=== PATIENT | female | born 1970 | race Caucasian/White ===

== ENCOUNTER 2016-08-15 05:35 | Inpatient (IN) | payer OTHER ==
[2016-08-15] MEDS ORDERED: CEFAZOLIN 1 GM VIAL ONE (06:02)
[2016-08-15 06:26] LABS: BLOOD UREA NITROGEN 14 MG/DL (7-17); CALCIUM 9.8 MG/DL (8.4-10.2); CALCULATED OSMOLALITY 270 MOs/Kg (270-290); CHLORIDE 101 mEq/L (98-107); GLUCOSE 97 MG/DL (70-99); SODIUM LEVEL 140 mEq/L (137-146)
[2016-08-15] MEDS ORDERED: PROMETHAZINE 25 MG/ML VIAL IV PRN ×2 (06:48)
[2016-08-15] MEDS ORDERED: HYDROmorphone 1 MG INJECTION IV PRN ×2 (06:48→06:55)
[2016-08-15] MEDS ORDERED: ONDANSETRON HCL 4 MG ODT TAB PO PRN (06:48)
[2016-08-15] MEDS ORDERED: ONDANSETRON HCL 4 MG/2 ML VIAL IV PRN ×2 (06:48→06:55)
[2016-08-15] MEDS ORDERED: LABETALOL 20 MG/4 ML SYRINGE IV PRN (06:48)
[2016-08-15] MEDS ORDERED: hydrALAZINE 20 MG/ML VIAL IV PRN (06:48)
[2016-08-15] MEDS ORDERED: MEPERIDINE 25 MG/ML TUBEX IV PRN (06:48)
[2016-08-15] MEDS ORDERED: FENTANYL 100 MCG/2 ML VIAL IV PRN (06:48)
--- NOTE | 2016-08-15 06:49 | SC.ANESPOS ---
[id number], Hemodynamically Stable, Pain Control Adequate Phase I & II Recovery Complete: Yes Apparent Anesthesia Complication: No : N - Vital Signs Blood Pressure: 155/82 Pulse: 65 Resp Rate: 18 O2 Sat: 98 Temp: 97.9 F
[2016-08-15] MEDS ORDERED: BUPIVACAINE 0.5% 30 ML VIAL ONE (06:51)
[2016-08-15] MEDS ORDERED: hydrALAZINE 10 MG TAB PO PRN (06:54)
[2016-08-15] MEDS ORDERED: MAGNESIUM HYDROXIDE 30 ML BOTTLE PO PRN (06:55)
[2016-08-15] MEDS ORDERED: Aluminum;Magnesium;Simethicone 30 ML UDC PO PRN (06:55)
[2016-08-15] MEDS ORDERED: SODIUM CHLORIDE 0.9% 3 ML FLUSH FLUSH PRN (06:55)
[2016-08-15] MEDS ORDERED: DIPHENHYDRAMINE 25 MG CAP PO PRN (06:55)
[2016-08-15] MEDS ORDERED: DIPHENHYDRAMINE 50 MG/ML VIAL IV PRN (06:55)
[2016-08-15] MEDS ORDERED: ZOLPIDEM TARTRATE 5 MG TAB PO PRN (06:55)
--- NOTE | 2016-08-15 06:59 | HIMOPRPT ---
PREOPERATIVE DIAGNOSIS: Right knee end-stage degenerative joint disease. POSTOPERATIVE DIAGNOSIS: Right knee end-stage degenerative joint disease. PROCEDURE: Right total knee arthroplasty. FINDINGS: End-stage medial and patellofemoral compartment arthrosis. SPECIMENS REMOVED: Portions of the distal femur, proximal tibia, and posterior patella. EBL: 100 mL. ANESTHESIA: General. COMPLICATIONS: None. SURGEON: Bill Barkley MD. KNIFE SETTER GRINDER MACHINE: SILVIA Branham. TOURNIQUET TIME: 42 minutes at 300 mmHg. IMPLANTS: Lendio Triathlon total knee system, metal size 3 cruciate retaining femoral component; size 3 metallic tibial base plate; 11 mm size 3 polyethylene insert; 29 x 9 mm asymmetric patella insert. SIGNIFICANT HISTORY, INDICATIONS, AND CONSENT: Faiza is a 46-year-old female with longstanding history of right knee pain recalcitrant to conservative treatment secondary to osteoarthritis. After discussing risks, benefits, and alternatives of non-operative treatment and operative intervention, the patient wished to proceed with surgical intervention and consent was obtained with potential benefits of improved knee pain and improved function. OPERATION IN DETAIL: The patient was seen in the preop holding area. The right lower extremity was signed. Consent was reviewed, questions were answered, H and P updated. SCD was placed on the left lower extremity. The patient was taken to the operative room, placed in supine position on the operative table, anesthesia placed monitoring devices and performed intubation. Tourniquet was placed high on the right lower extremity with the right lower extremity being sterilely prepped and draped in the usual orthopedic fashion. Time-out was performed. The patient received prophylactic antibiotics. Consensus was reached amongst participants in the OR suite. Esmarch was used to exsanguinate the limb. Tourniquet raised to 300 mmHg. Standard anterior approach to the knee was performed incising sharply through skin and then performed a medial parapatellar arthrotomy. The superficial MCL was carefully released subperiosteally of the proximal tibia medially. We then released anterior soft tissue structures, everted the patella and gently flexed the knee, being careful to avoid injury to the patellar tendon distally. Next, intramedullary guide was placed within the femur intramedullary canal. We then performed a distal femoral cut removing 8 mm, 5 degrees valgus. After a distal cut was made, this was sized using a posterior condyle referencing system to be a size 3 femur, size 3 cutting block was placed and distal femoral cuts were made in standard fashion. ACL was removed and PCL gently retracted. End-stage medial and patellofemoral arthrosis was noted. Extramedullary guide was placed for a tibial cut, which was perpendicular to the tibia and in line with the tibial crest. Once this was placed, we removed 9 from the high side with 2 mm removed from the more worn plateau. After tibial cut was made, we checked our alignment and found this to be quite appropriate. We then performed flexion-extension gap measuring, and again addressed our soft tissue balancing to appropriately balance the knee. Our tibial baseplate was sized and rotated in line with the medial 1/3 of the tibial tubercle. This was provisionally pinned and attention turned to our patella cut. Our patella was then sized, removing approximately 6 mm of bone after measuring 20 mm. 14 remained, this was sized to a 29 mm patella and the patella was drilled. Components were placed and provisional implants were found to be acceptable in regards to range of motion and ligamentous stability throughout the motion arc. We then performed our fin cut and drilled our femoral implant. Provisional implants were then removed. The cut surfaces were then thoroughly irrigated and dried for cementation. Cementation was being mixed on the back table while we injected Exparel within the deep structures of the knee being careful to aspirate prior to injection. 0.25% Marcaine was also injected at this time in standard fashion. We then began cementation of our tibial, femoral, and patellar components in standard fashion. After these were cemented and held until cement had hardened, excess cement was removed. Range of motion and stability were found to be appropriate. We then allowed tourniquet to be released and immaculate hemostasis was performed with Bovie cautery. Medial parapatellar arthrotomy was closed at the superomedial border of the patella with #1 Ethibond in an interrupted fashion. The remainder of the arthrotomy closed with #1 barbed PDS in a watertight closure. We used 2-0 Vicryl for subcutaneous closure and mercy for skin. Sterile soft tissue dressing was placed. The patient was placed in the GABRIELLE hose aroused by Anesthesia and taken to postanesthesia care in stable condition. PLAN: The patient will be admitted to Orthopedic Service. Begin CPM in the PACU. Radiographs will be taken in the PACU. 24 hours perioperative antibiotics will be given with 14 days of DVT chemoprophylaxis, and physical therapy beginning this evening
[2016-08-15] MEDS ORDERED: TRANEXAMIC ACID 1,000 MG in NS 100 ML IV ONE (07:00)
[2016-08-15] MEDS ORDERED: Pharmacy Discontinue All Previous Acetaminophen Orders SCH (07:00)
[2016-08-15] MEDS ORDERED: SODIUM CHLORIDE 0.9% 3 ML FLUSH FLUSH SCH (07:00)
[2016-08-15] MEDS ORDERED: NALOXONE 0.4 MG/ML AMPULE IV SCH (07:00)
--- NOTE | 2016-08-15 07:04 | HIM.ANES ---
Anesthesia Evaluation & Plan Diagnoses: UNILATERAL PRIMARY OSTEOARTHRITIS, RIGHT KNEE (08/15/16) Consented Procedure: RIGHT TOTAL KNEE ARTHROPLASTY Surgeon:: Bill Barkley - Focused Review of Systems Cardiac History: Yes: Hx Hypertension, Hx Cardia Arrhythmia (BRADYCARDIA PATIENT ON BETABLOCKER), Hx Cardiac Disorders HEENT: Yes: Hx Vision Problem (PRESCRIPTION GLASSES), Other HEENT Problems No: Temporomandibular Joint Disease (TMJ) Hx Other HEENT Problems: CHRONIC RHINNITIS Respiratory: Yes: Patient at risk for Sleep apnea (Based on JANES tool), Hx Snoring Gastrointestinal: No: Hx Gastrointestinal Disorders Neurological/Musculoskeletal: Yes: Hx Seizures (PRIOR TO AGE 2... NO SEIZURE AFTER AGE 2), Hx Numbness, Tingling, Weakness in Arms & Legs (RIGHT FOOT), Hx Neurological Disorders Other Neurological Problems: NEUROPATHY RIGHT FOOT Psychological: Yes Hx Anxiety, Yes Hx Mental/Emotional Disorders HX Other Psyco/Soc Problems: INSOMNIA Blood/Autoimmune: No: Hx AIDS, Hx Hepatitis (type) Smoking Status: Former smoker Surgical History: Yes: Knee (RIGHT KNEE ARTHROSCOPIC SURGERY 01/2015) Other Surgical History: LAP BAND SURGERY 2009 BTL age 17 - Focused Physical Exam NPO since: 08/14/16 2300 Mallampati: Class III Thyromental Distance: Greater than 3 Neck: Full Range of Motion Dental: Normal - no significant findings Cardiovascular/Chest: Normal Respiratory: Lungs clear Any problems with anesthesia, including nausea and vomiting?: Yes (DIFFICULTY WAKING UP) Any relatives with a history of Malignant Hyperthermia?: No Beta Kojo given (if appropriate): Yes Does the patient have a history of Motion Sickness-: No Other: CBC/BMP/Other 08/15/16 06:03 Allergies Allergy/AdvReac Type Severity Reaction Status Date / Time amlodipine [From Norvasc] Allergy Severe Edema-Gener Verified 08/15/16 06:11 alized lisinopril Allergy Severe Cough Verified 08/15/16 06:11 Home Medications Medication Instructions Recorded Last Taken Type Acetaminophen [Tylenol Arthritis] 650 - 1,300 mg PO Q6 PRN 08/03/16 2 Days Ago History Acetaminophen/Diphenhydramine 2 each PO DAILY PRN 08/03/16 08/12/16 History [Tylenol Pm Ex-Strength Caplet] Hydrochlorothiazide 25 mg PO DAILY 08/03/16 08/13/16 History Tramadol HCl [Ultram] 1 - 2 tab PO Q6 PRN 08/03/16 2 Days Ago History hydrALAZINE (Cardiovascular) 10 mg PO TID PRN 08/03/16 3 Days Ago History [Apresoline] Metoprolol Succinate 100 mg PO DAILY 08/15/16 08/14/16 23:00 History Height and Weight Patient's height 5 ft 5 in Patient's weight 220 lb Vital Signs Temperature 97.9 F 08/15/16 06:49 Pulse Rate 65 08/15/16 06:49 Respiratory Rate 18 08/15/16 06:49 Blood Pressure 155/82 08/15/16 06:49 Pulse Oxygen Saturation 98 08/15/16 06:49 - Anesthetic Plan Anesthesia Type: General ASA Class: 3 -: I have examined this patient and reviewed the medical record. The patient has been assessed prior to anesthesia. Risks and benefits of anesthesia and anesthetic technique options have been discussed and all questions answered. The patient accepts the risk and desires me to proceed with the planned anesthetic.
[2016-08-15] MEDS: BUPIVACAINE LIPOSOME/PF 1.3% 20 ML VIAL INF ONE ×2 (08:32→11:17)
[2016-08-15] MEDS: FENTANYL 100 MCG/2 ML VIAL IV PRN ×4 (09:25→09:55)
[2016-08-15] MEDS ORDERED: FENTANYL 100 MCG/2 ML VIAL ONE ×2 (09:26→09:49)
[2016-08-15] MEDS ORDERED: HYDROmorphone 1 MG INJECTION ONE (09:31)
--- NOTE | 2016-08-15 09:58 | DIRPT ---
CLINICAL DATA: Post elective knee replacement EXAM: Right knee MRI 12/06/2015 COMPARISON: None. FINDINGS: Changes of right knee replacement. Soft tissue and joint space gas. No hardware or bony complicating feature. IMPRESSION: Right knee replacement. No complicating feature. Electronically Signed By: Sheldon Grajeda M.D. On: 08/15/2016 09:55
[2016-08-15] MEDS ORDERED: ONDANSETRON HCL 4 MG/2 ML VIAL IV ONE (10:00)
[2016-08-15] MEDS ORDERED: PROPOFOL 200 MG/20 ML VIAL IV ONE (10:00)
[2016-08-15] MEDS ORDERED: DEXAMETHASONE 4 MG/ML VIAL IV ONE (10:00)
[2016-08-15] MEDS ORDERED: LIDOCAINE 100 MG PFS IV ONE (10:00)
[2016-08-15] MEDS ORDERED: FENTANYL 100 MCG/2 ML VIAL IV ONE (10:00)
[2016-08-15] MEDS ORDERED: hydrALAZINE 20 MG/ML VIAL IM ONE (10:00)
[2016-08-15] MEDS ORDERED: LABETALOL 5 MG/ML MDV IV ONE (10:00)
[2016-08-15] MEDS ORDERED: MIDAZOLAM 2 MG/2 ML VIAL IV ONE (10:00)
[2016-08-15] MEDS ORDERED: ROCURONIUM 50 MG/5 ML VIAL IV ONE (10:00)
[2016-08-15] MEDS ORDERED: HYDROmorphone 2 MG/ML VIAL IM ONE (10:00)
[2016-08-15] MEDS: HYDROmorphone 1 MG INJECTION IV PRN ×4 (10:05→14:31)
[2016-08-15] MEDS: OXYCODONE HCL 5 MG TABLET PO PRN ×2 (11:40→19:04)
[2016-08-15] MEDS: VITAMINS, MULTIPLE CAP PO SCH (11:58)
[2016-08-15] MEDS: Cefazolin 2gm/50 ml D5W 2 GM/50 ML RTU IV SCH ×2 (11:58→20:22)
[2016-08-15] MEDS: HYDROCHLOROTHIAZIDE 25 MG TAB PO SCH (11:58)
[2016-08-15] MEDS: METOPROLOL (TOPROL-XL) 100 MG TAB PO SCH ×3 (11:59→20:24)
[2016-08-15] MEDS: ACETAMINOPHEN 325 MG/TAB TABLET PO SCH ×2 (11:59→20:24)
[2016-08-15] MEDS ORDERED: Vaccine Screening Complete SCH (12:00)
[2016-08-15] MEDS: Aspirin (Orange Enteric Coated) 325 mg tab PO SCH (16:55)
[2016-08-15] MEDS: PANTOPRAZOLE 40 MG TAB PO SCH (16:55)
[2016-08-15] MEDS: Celecoxib 200 MG CAP PO SCH (16:55)
[2016-08-15] MEDS: SODIUM CHLORIDE 0.9% 3 ML FLUSH FLUSH SCH (16:55)
--- NOTE | 2016-08-15 17:15 | PCM.ORTHBL ---
- Subjective Chief Complaint: right knee pain Hospital Day #: 1 Post Op Day: 0 Daily Assessment - Patient: Reports: No new complaints - Objective / Physical Exam Vital Signs: Temperature: 97.6 F (08/15/16 13:57) HR: 80 (08/15/16 13:57)RR: 18 (08/15/16 13: 57) BP: 104/64 (08/15/16 13:57)Pulse Ox: 98 (08/15/16 13:57) General: Alert, Oriented x3, Cooperative, No acute distress Musculoskeletal / Extremities: Dressing Clean/Dry/Intact Neurological: Positive Sensation First Dorsal Web Space, Extensor Hallicus Longus Intact, Flexor Hallicus Longus Intact - Assessment and Plan (1) Closed right trimalleolar fracture Acute S82.851A - DISPLACED TRIMALLEOLAR FRACTURE OF RIGHT LOWER LEG, INIT Plan: OOB w/ PT. NWB RLE. Pain medication adjusted. Will begin lovenox tomorrow.
[2016-08-15] MEDS: DOCUSATE-SENNA CONCENTRATE TAB PO SCH (20:23)
[2016-08-16] MEDS: PANTOPRAZOLE 40 MG TAB PO SCH ×2 (05:07→17:32)
[2016-08-16] MEDS: Cefazolin 2gm/50 ml D5W 2 GM/50 ML RTU IV SCH (05:07)
[2016-08-16] MEDS: ACETAMINOPHEN 325 MG/TAB TABLET PO SCH ×3 (05:07→20:55)
[2016-08-16] MEDS: OXYCODONE HCL 5 MG TABLET PO PRN ×4 (05:08→20:55)
[2016-08-16] MEDS: SODIUM CHLORIDE 0.9% 3 ML FLUSH FLUSH SCH ×2 (05:08→17:32)
--- NOTE | 2016-08-16 06:46 | PCM.ORTHBL ---
- Subjective Hospital Day #: 2 Post Op Day: 1 Daily Assessment - Patient: Reports: No new complaints, Awake Alert Oriented x4 , Still having pain, Pain is less, Ambulating in Room - Objective / Physical Exam Vital Signs: Temperature: 98.1 F (08/16/16 06:00) HR: 67 (08/16/16 06:00)RR: 18 (08/16/16 06: 00) BP: 149/62 (08/16/16 06:00)Pulse Ox: 97 (08/16/16 06:00) General: Alert, Oriented x3, Cooperative, No acute distress Musculoskeletal / Extremities: 2 plus Dorsalis Pedis Pulse, Dressing Clean/Dry/ Intact Neurological: Sensation to light touch intact (DP/SP/T/S/S), Extensor Hallicus Longus Intact, Flexor Hallicus Longus Intact, Dorsiflexion Intact, Plantarflexion Intact Skin: Warm,Dry and Intact Laboratory/Diagnostics Reviewed: Laboratory Results - last 24 hr 08/15/16 06:03 Blood Type A POSITIVE Antibody Screen Negative - Assessment and Plan (1) Closed right trimalleolar fracture Acute S82.851A - DISPLACED TRIMALLEOLAR FRACTURE OF RIGHT LOWER LEG, INIT Plan: 46 y/o F POD#1 s/p R TKA. Pt. doing well w/ no complaints. OOB w/ PT today. Anticipate d/c home tomorrow w/ HH. Begin ASA 325mg PO BID x 14 days. Continue Periop abx.
[2016-08-16 07:33] LABS: MPV 7.5 fL (7.4-10.4)
[2016-08-16 07:37] LABS: BLOOD UREA NITROGEN 10 MG/DL (7-17); CALCIUM 9.2 MG/DL (8.4-10.2); CALCULATED OSMOLALITY 267 MOs/Kg (270-290); CHLORIDE 100 mEq/L (98-107); GLUCOSE 97 mg/dL (70-99); SODIUM LEVEL 139 mEq/L (137-146)
[2016-08-16] MEDS: Aspirin (Orange Enteric Coated) 325 mg tab PO SCH ×2 (07:57→17:31)
[2016-08-16] MEDS: Celecoxib 200 MG CAP PO SCH ×2 (07:57→17:31)
[2016-08-16] MEDS: HYDROCHLOROTHIAZIDE 25 MG TAB PO SCH (07:58)
[2016-08-16] MEDS ORDERED: Remove Transdermal Scopolamine Patch after 24 hours ONE (08:00)
[2016-08-16] MEDS: VITAMINS, MULTIPLE CAP PO SCH (11:06)
[2016-08-16] MEDS ORDERED: hydrALAZINE 10 MG TAB PO PRN (13:15)
[2016-08-16] MEDS: METOPROLOL (TOPROL-XL) 100 MG TAB PO SCH (20:56)
[2016-08-16] MEDS: DOCUSATE-SENNA CONCENTRATE TAB PO SCH (20:56)
[2016-08-17] MEDS: OXYCODONE HCL 5 MG TABLET PO PRN ×2 (02:41→10:13)
[2016-08-17] MEDS: SODIUM CHLORIDE 0.9% 3 ML FLUSH FLUSH SCH (05:37)
[2016-08-17] MEDS: PANTOPRAZOLE 40 MG TAB PO SCH (05:37)
[2016-08-17] MEDS: ACETAMINOPHEN 325 MG/TAB TABLET PO SCH ×2 (05:37→13:27)
[2016-08-17 05:45] VITALS: BP 146/62; PULSE 62; TEMP 98.8
[2016-08-17 07:14] LABS: MPV 7.5 fL (7.4-10.4)
--- NOTE | 2016-08-17 07:54 | PCM.ORTHBL ---
- Subjective Hospital Day #: 3 Post Op Day: 2 Daily Assessment - Patient: Reports: No new complaints, Awake Alert Oriented x4 , Feels better, Still having pain, Pain is less - Objective / Physical Exam Vital Signs: Temperature: 98.8 F (08/17/16 05:45) HR: 62 (08/17/16 05:45)RR: 18 (08/17/16 05: 45) BP: 146/62 (08/17/16 05:45)Pulse Ox: 95 (08/17/16 05:45) General: Alert, Oriented x3, Cooperative, No acute distress Musculoskeletal / Extremities: 2 plus Dorsalis Pedis Pulse, Dressing Clean/Dry/ Intact Neurological: Sensation to light touch intact (DP/Sp/T/S/S), Extensor Hallicus Longus Intact, Flexor Hallicus Longus Intact, Dorsiflexion Intact, Plantarflexion Intact Skin: Warm,Dry and Intact, No rashes, No breakdown Laboratory/Diagnostics Reviewed: Laboratory Results - last 24 hr 08/17/16 06:45 WBC 13.6 H RBC 3.88 L Hgb 11.3 L Hct 33.8 L MCV 87 MCH 29.1 MCHC 33.4 RDW 14.8 H Plt Count 279 MPV 7.5 - Assessment and Plan (1) Status post total right knee replacement using cement Acute Z96.651 - PRESENCE OF RIGHT ARTIFICIAL KNEE JOINT Plan: 46-year-old female postoperative day 2 status post right total knee arthroplasty. Patient doing well this morning with pain controlled. She has been working well with formal therapy and is tolerating a regular diet. Pain well controlled on oral pain medication. Anticipate discharge home with home health today after physical therapy performed.
--- NOTE | 2016-08-17 07:59 | PCM.DCS92 ---
- Final/Secondary Discharge Diagnosis (1) Status post total right knee replacement using cement Acute Z96.651 - PRESENCE OF RIGHT ARTIFICIAL KNEE JOINT Discharge Disposition: Discharge w/ Home Health Discharge Condition: Stable Cognitive Discharge Status: Unimpaired Fuctional Discharge Status: Walker Assistance Physician Follow up/Referrals: Bill Barkley MD [Staff Physician] - Listed Time Home Medications/ New Prescriptions: New Acetaminophen Tablet [TYLENOL Tablet] 975 mg PO Q8 #60 tablet Aspirin (OrangeEnteric Coated) [Ecotrin] 325 mg PO BIDWM #28 tablet Celecoxib (anti-inflammatory) [Celebrex] 200 mg PO BIDWM #40 capsule Docusate-Senna Concentrate [Senokot S or Tori Colace] 2 tab PO HS #60 tablet Oxycodone Immediate Release [Oxycodone Immediate Release (OxyIR)] 5 - 10 mg PO Q4 PRN #40 tablet PRN Reason: Pain Continue hydrALAZINE (Cardiovascular) [Apresoline] 10 mg PO TID PRN PRN Reason: SBP >150 Tramadol HCl [Ultram] 1 - 2 tab PO Q6 PRN PRN Reason: Pain Acetaminophen/Diphenhydramine [Tylenol Pm Ex-Strength Caplet] 2 each PO DAILY PRN PRN Reason: INSOMNIA Acetaminophen [Tylenol Arthritis] 650 - 1,300 mg PO Q6 PRN PRN Reason: Pain Hydrochlorothiazide 25 mg PO DAILY Metoprolol Succinate 100 mg PO QHS Ergocalciferol (Vitamin D2) [Vitamin D2 (ergocalciferol)] 50,000 units PO WEEKLY Diet at Discharge: As Tolerated Activity: No Restrictions Call Office For: Worsening Symptoms, Wound is Draining Pus, Fever over 101 F Discontinue use of:: Alcohol, All Illegal Substances, All Types of Tobacco - DC Summary Notes Hospital Course Note:: Discharge summary on patient named RONIT RENEE admitted to [facility] on 08/15/16 by Bill Barkley MD. Date of discharge is August 17, 2016. 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 She was transferred to the floor in stable condition and has done well postoperatively. Begin formal therapy on postoperative day 0. Began DVT chemoprophylaxis to include aspirin 325 mg p.o. b.i.d. on postoperative day 1. Pain well controlled on oral pain medication and progressing nicely with formal therapy. Patient tolerating a regular diet and having normal bowel movements and able to urinate without difficulty. Ready for DC home on postoperative day 2 with home health. Operations-procedures: Right total knee arthroplasty-August 15, 2016 Disposition: Patient will be discharged home with home health. Weightbear as tolerated. Activity as tolerated. Dressing to remain intact. Okay to shower with dressing in place. Prescriptions have been provided to include oxycodone 5 mg 1 tab p.o. q.4 hours as needed for pain, Colace 100 mg p.o. b.i.d.; aspirin 325 mg p.o. b.i.d. times 14 days postoperatively. Celebrex 200 mg p.o. b.i.d.. Wound Care Surgical Site: Yes Medical Equipment (Order must still be written on paper): Walker, Shower Chair Medication Instructions: Take Stool Softener, Rx on Chart Continue Ice Packs/Ice Machine to Operative Area: Yes Activity as Tolerated: Yes Weight Bearing: Full Current Dressing: Aquacel Dressing Care: Other Instructions Below (Okay to shower with Aquacel.) - Consults/Home Health Outpatient Consults: Home Health - Physical Exam Vital Signs: Initial Vitals Temperature 97.9 F 08/15/16 06:13 Pulse Rate 65 08/15/16 06:13 Respiratory Rate 18 08/15/16 06:13 Blood Pressure 155/82 08/15/16 06:13 Pulse Oxygen Saturation 98 08/15/16 06:13
[2016-08-17] MEDS: Aspirin (Orange Enteric Coated) 325 mg tab PO SCH (08:17)
[2016-08-17] MEDS: HYDROCHLOROTHIAZIDE 25 MG TAB PO SCH (08:17)
[2016-08-17] MEDS: Celecoxib 200 MG CAP PO SCH (08:17)
[2016-08-17] MEDS: VITAMINS, MULTIPLE CAP PO SCH (13:27)
== END 2016-08-17 14:15 | disposition home health service (06) | DRG 470 ==
LOC: SDC 05:35 → MPS3 11:08
PROVIDERS: ADMIT Orthopaedic Surgery; ATTEND Orthopaedic Surgery
PROC: 0SRC0J9 Replacement of Right Knee Joint with Synthetic Substitute, Cemented, Open Approach (ICD-10-PCS; principal; 2016-08-15 07:15)
DX: M17.11 Unilateral primary osteoarthritis, right knee (principal); N32.89 Other specified disorders of bladder; Z88.8 Allergy status to other drugs, medicaments and biological substances; R39.15 Urgency of urination; I10 Essential (primary) hypertension; E66.9 Obesity, unspecified; Z87.891 Personal history of nicotine dependence; Z79.899 Other long term (current) drug therapy; Z68.36 Body mass index [BMI] 36.0-36.9, adult; E55.9 Vitamin D deficiency, unspecified
CPT/HCPCS: 80048; 85027; 86850; 86900; 86901; 97161; 97165; C9290; G0237; J0360; J0690; J1100; J1170; J2001; J2250; J2405; J3010; J3490; J7030